=== PATIENT | male | born 1950 | race Caucasian/White ===

== ENCOUNTER → 2019-05-06 | Outpatient (CLI) | payer MEDICARE, BC ==
[~2019-05-06] MED LIST: AMLO10TA8 PO; HYDROCHLOROTH12.5 MG PO; LEVO100T5 PO; MULT1TAB60 PO; NIAC500T9 PO; SIMV20TA3 PO; TAMS-11 PO; macutene PO
[2019-05-06 12:09] LABS: BASOPHILS # (AUTO) 0.01 x10^3/uL (0-0.1); BASOPHILS % (AUTO) 0 % (0-1); EOSINOPHILS % (AUTO) 2 % (1-7); LYMPHOCYTES # (AUTO) 1.54 x10^3/uL (1-3.4); LYMPHOCYTES % (AUTO) 26 % (22-44); MD NO; MEAN CORPUSCULAR HEMOGLOBIN 31.4 pg (27.5-34.5); MEAN CORPUSCULAR HGB CONC 33.3 g/dL (33.2-36.2); MEAN CORPUSCULAR VOLUME 94.2 fL (81-97); MEAN PLATELET VOLUME 7.8 fL (7.4-10.4); MONOCYTES # (AUTO) 0.54 x10^3/uL (0.2-0.8); MONOCYTES % (AUTO) 9 % (2-9); NEUTROPHILS # (AUTO) 3.85 x10^3/uL (1.8-6.8); NEUTROPHILS % (AUTO) 64 % (42-75); PLATELET COUNT 214 x10^3/uL (130-400); RED BLOOD COUNT 5.02 x10^6/uL (4.38-5.82); RED CELL DISTRIBUTION WIDTH 13.9 % (9.4-14.8)
[2019-05-06 12:16] LABS: PROTHROMBIN TIME 10.5 Seconds (9.6-11.5)
[2019-05-06 12:20] LABS: CHLORIDE 105 mmol/L (98-107)
[2019-05-06 12:26] LABS: ALANINE AMINOTRANSFERASE 38 U/L (12-78); ALBUMIN 4.4 g/dL (3.4-5.0); ALKALINE PHOSPHATASE 77 U/L (45-117); ANION GAP 5 mmol/L (5-15); BILIRUBIN,TOTAL 0.5 mg/dL (0.2-1.0); CALCIUM 8.9 mg/dL (8.5-10.1); CREATININE 0.97 mg/dL (0.7-1.3); TOTAL PROTEIN 8.1 g/dL (6.4-8.2)
[2019-05-06 12:33] LABS: HEMOGLOBIN A1C 5.8 % (4.2-6.3)
== END | disposition home or self-care (01) ==
LOC: STAR 10:42
PROVIDERS: ATTEND Orthopaedic Surgery
CPT/HCPCS: 36415; 80053; 83036; 85025; 85610; 85730; 87081; 93005

== ENCOUNTER 2019-05-16 05:40 | Day surgery (SDC) | payer MEDICARE, BC ==
[~2019-05-16] VITALS: Ht 180.3 cm; Wt 128.3 kg
[2019-05-16] MEDS ORDERED: ACETAMINOPHEN 500 MG TABLET PO ONE (06:00)
[2019-05-16] MEDS ORDERED: GABAPENTIN 300 MG CAPSULE PO ONE (06:00)
[2019-05-16] MEDS ORDERED: LACTATED RINGERS 1,000 ML IV SCH (06:02)
[2019-05-16] MEDS ORDERED: FENTANYL PF 250 MCG/5ML ONE (06:32)
[2019-05-16] MEDS ORDERED: MIDAZOLAM 1 MG/ML, 2ML ONE (06:32)
[2019-05-16] MEDS ORDERED: TRANEXAMIC ACID 100 MG/ML, 10ML ONE ×2 (06:36)
[2019-05-16] MEDS ORDERED: KETOROLAC 60 MG/2 ML ONE (06:36)
[2019-05-16] MEDS ORDERED: ROPIvacaine/PF 0.5%, 20 ML ONE (06:37)
[2019-05-16] MEDS ORDERED: VANCOMYCIN 1,000 MG ONE (06:37)
[2019-05-16] MEDS ORDERED: SODIUM CHLORIDE 0.9% 50 ML ONE (06:37)
[2019-05-16] MEDS ORDERED: EPINEPHRINE 1 MG/ML, 1ML ONE (06:37)
[2019-05-16] MEDS ORDERED: NS + 20MEQ KCL 1,000 ML IV SCH (06:44)
[2019-05-16] MEDS ORDERED: DIPHENHYDRAMINE 50 MG CAPSULE PO PRN (07:00)
[2019-05-16] MEDS ORDERED: ONDANSETRON 2MG/ML, 2ML IV PRN (07:00)
[2019-05-16] MEDS ORDERED: CEFAZOLIN PMX 2GM/50ML 50 ML IVPB SCH ×2 (07:00→15:00)
[2019-05-16] MEDS ORDERED: BISACODYL 10 MG SUPP PR PRN (07:00)
[2019-05-16] MEDS ORDERED: ZOLPIDEM 5MG TABLET PO PRN (07:00)
[2019-05-16] MEDS ORDERED: SENNA/DOCUSATE TABLET PO PRN (07:00)
[2019-05-16] MEDS ORDERED: MAGNESIUM HYDROXIDE 8%, 30ML UDC PO PRN (07:00)
[2019-05-16] MEDS ORDERED: SCOPOLAMINE PATCH, 1.5MG PATCH.TD72 TD ONE (07:00)
[2019-05-16] MEDS ORDERED: ONDANSETRON 4 MG TABLET PO PRN (07:00)
[2019-05-16] MEDS ORDERED: HYDROmorphone 1 MG/ML, 1ML INJ IV PRN (07:00)
[2019-05-16] MEDS ORDERED: OXYcodone IR 5MG TABLET PO PRN (07:00)
[2019-05-16] MEDS ORDERED: HYDROcodone/APAP 5/325 TABLET PO PRN (07:00)
[2019-05-16] MEDS ORDERED: ACETAMINOPHEN 650 MG/20.3 ML UDC PO PRN (07:00)
[2019-05-16] MEDS ORDERED: DEXMEDETOMIDINE 200 MCG/2 ML ONE (07:05)
[2019-05-16] MEDS ORDERED: CEFAZOLIN 1,000 MG ONE ×2 (07:05→08:00)
[2019-05-16] MEDS ORDERED: METHOCARBAMOL 1,000 MG in DEXTROSE 5% 100 ML IV PRN (07:30)
[2019-05-16] MEDS ORDERED: OXYcodone 5 MG/5 ML ORAL.SOL UDC PO PRN (07:30)
[2019-05-16] MEDS ORDERED: MEPERIDINE/PF 25MG/ML,1ML IVPush PRN (07:30)
[2019-05-16] MEDS ORDERED: hydrALAzine 20 MG/ML, 1ML IV PRN (07:30)
[2019-05-16] MEDS ORDERED: HYDROmorphone 2 MG/ML, 1ML IVPush PRN (07:30)
[2019-05-16] MEDS ORDERED: PROMETHAZINE 25 MG/ML, 1ML IV PRN (07:30)
[2019-05-16] MEDS ORDERED: SUCCINYLCHOLINE 20 MG/ML, 10ML ONE (07:34)
[2019-05-16] MEDS ORDERED: WATER-INJECTION,STERILE 10 ML IV ONE (08:00)
[2019-05-16] MEDS ORDERED: LIDOCAINE-MPF 2% ,5ML ONE (08:00)
[2019-05-16] MEDS ORDERED: DEXAMETHASONE 4 MG/ML, 1ML ONE (08:00)
[2019-05-16] MEDS ORDERED: PHENYLEPHRINE 10 MG/ML ONE (08:00)
[2019-05-16] MEDS ORDERED: ROCURONIUM 10MG/ML,5ML ONE (08:00)
[2019-05-16] MEDS ORDERED: BUPIVACAINE/PF 0.25% ONE (08:00)
[2019-05-16] MEDS ORDERED: PROPOFOL 10 MG/ML, 20ML ONE (08:00)
[2019-05-16] MEDS ORDERED: ONDANSETRON 2MG/ML, 2ML ONE (08:00)
[2019-05-16] MEDS ORDERED: MEPERIDINE/PF 100 MG/ML ONE (08:12)
[2019-05-16] MEDS ORDERED: SUGAMMADEX 200 MG/2 ML IVPush ONE (08:21)
[2019-05-16] MEDS ORDERED: FENTANYL PF 100 MCG/2ML ONE (08:59)
[2019-05-16] MEDS ORDERED: OXYcodone 5 MG/5 ML ORAL.SOL UDC ONE (08:59)
[2019-05-16] MEDS ORDERED: AMLODIPINE 10 MG TAB PO SCH (09:00)
[2019-05-16] MEDS ORDERED: HYDROCHLOROTHIAZIDE 12.5 MG CAPSULE PO SCH (09:00)
[2019-05-16] MEDS ORDERED: LEVOTHYROXINE 100 MCG TABLET PO SCH (09:00)
[2019-05-16] MEDS ORDERED: DOCUSATE 100 MG CAPSULE PO SCH (09:00)
[2019-05-16] MEDS: FENTANYL PF 100 MCG/2ML IV PRN ×2 (09:01→09:08)
[2019-05-16] MEDS ORDERED: DIPHENHYDRAMINE 25 MG CAPSULE PO PRN (10:00)
[2019-05-16 10:10] VITALS: BP 125/73
[2019-05-16 14:30] VITALS: BP 149/76
[2019-05-16 16:27] VITALS: BP 146/74
[2019-05-16] MEDS ORDERED: OXYC5CAP2 PO (16:36)
[2019-05-16] MEDS ORDERED: TRAM50TA2 PO (16:36)
[2019-05-16] MEDS ORDERED: MELO7.5T31 PO (16:37)
[2019-05-16] MEDS ORDERED: ASPIRIN 81 MG TABLET EC PO SCH (18:00)
[2019-05-16] MEDS ORDERED: SIMVASTATIN 20 MG TABLET PO SCH (21:00)
[2019-05-16] MEDS ORDERED: TAMSULOSIN 0.4 MG CAP.ER.24H PO SCH (21:00)
[2019-05-17] MEDS ORDERED: DEXAMETHASONE 4 MG/ML, 1ML IVPush SCH (06:00)
== END 2019-05-16 17:55 | disposition home or self-care (01) ==
LOC: OUT 05:40 → 4NE 09:52 → OUT 17:55
PROVIDERS: ATTEND Orthopaedic Surgery
DX: M17.11 Unilateral primary osteoarthritis, right knee (principal); M21.161 Varus deformity, not elsewhere classified, right knee; M25.761 Osteophyte, right knee; I10 Essential (primary) hypertension; E03.9 Hypothyroidism, unspecified; N40.0 Benign prostatic hyperplasia without lower urinary tract symptoms; J45.909 Unspecified asthma, uncomplicated; G47.30 Sleep apnea, unspecified; Z87.891 Personal history of nicotine dependence; Z91.018 Allergy to other foods
CPT/HCPCS: 27447; 64447; 97161; C1713; C1776; J0171; J0330; J0690; J1100; J1885; J2175; J2250; J2370; J2405; J2704; J2795; J3010; J3370; J3480; J3490; J7120; G0378